=== PATIENT | male | born 1990 | race Caucasian/White ===

== ENCOUNTER 2023-09-26 07:19 | Emergency (ER) | payer BC ==
[~2023-09-26] VITALS: Ht 180.3 cm; Wt 93.0 kg
[2023-09-26 07:29] VITALS: O2SAT 99
[2023-09-26] MEDS ORDERED: IBUP-2029 MT (08:36)
[2023-09-26] MEDS ORDERED: LIDOCAINE 5% PATCH TOP SCH (09:00)
[2023-09-26 09:30] VITALS: BP 128/72; PULSE 82; RESP 16; TEMP 98.6
[2023-09-26] MEDS ORDERED: IBUPROFEN 600MG TABLET PO ONE (09:30)
[2023-09-27] MEDS ORDERED: LIDOCAINE 5% PATCH TOP SCH (09:00)
== END 2023-09-26 09:32 | disposition home or self-care (01) ==
LOC: ER 07:19
DX: R09.1 Pleurisy (principal)
CPT/HCPCS: 71045; 99283; Z7610

== ENCOUNTER 2024-07-28 17:18 | Emergency (ER) | payer BC ==
[~2024-07-28] VITALS: Ht 180.3 cm; Wt 95.2 kg
[~2024-07-28 17:18] MED LIST: IBUP-2029 MT
[2024-07-28 17:22] VITALS: BP 139/97; TEMP 98; O2SAT 98
[2024-07-28 17:23] VITALS: PULSE 86; RESP 16; O2SAT 99
[2024-07-28] MEDS ORDERED: NAPR-681 PO (18:46)
== END 2024-07-28 19:14 | disposition home or self-care (01) ==
LOC: ER 17:18
DX: S43.402A Unspecified sprain of left shoulder joint, initial encounter (principal); Z87.891 Personal history of nicotine dependence; X50.0XXA Overexertion from strenuous movement or load, initial encounter; Y93.89 Activity, other specified; Y92.89 Other specified places as the place of occurrence of the external cause; Y99.8 Other external cause status
CPT/HCPCS: 73030; 99283; A4565

== ENCOUNTER → 2024-10-17 | Outpatient (CLI) | payer BC ==
[~2024-10-17] MED LIST changes: +NAPR-681 PO
== END | disposition home or self-care (01) ==
LOC: RAD 12:25
PROVIDERS: ATTEND Podiatrist Foot & Ankle Surgery
DX: M19.072 Primary osteoarthritis, left ankle and foot (principal); M19.071 Primary osteoarthritis, right ankle and foot; M25.872 Other specified joint disorders, left ankle and foot; M77.32 Calcaneal spur, left foot
CPT/HCPCS: 73600